=== PATIENT | male | born 1940 | race African-American/Black ===

== ENCOUNTER 2022-01-23 08:09 | Day surgery (SDC) | payer OTHER ==
[~2022-01-23] VITALS: Ht 182.9 cm; Wt 84.4 kg
[2022-01-23] MEDS ORDERED: fentaNYL citrate 0.05 MG/ML VIAL ONE (09:39)
[2022-01-23] MEDS ORDERED: MIDAZOLAM 2 MG/2 ML VIAL ONE ×3 (09:39→10:42)
[2022-01-23] MEDS ORDERED: LIDOCAINE 2% 100 MG/5 ML UJET TP ONE (09:40)
[2022-01-23] MEDS ORDERED: MIDAZOLAM 2 MG/2 ML VIAL IVP ONE (12:10)
[2022-01-23] MEDS ORDERED: fentaNYL citrate 0.05 MG/ML VIAL IVP ONE (12:10)
== END 2022-01-23 12:20 | disposition home or self-care (01) ==
LOC: MOR 08:09 → MMU 08:10 → MOR 12:20
PROVIDERS: ATTEND Internal Medicine Gastroenterology
DX: K62.5 Hemorrhage of anus and rectum (principal); D12.2 Benign neoplasm of ascending colon; D12.3 Benign neoplasm of transverse colon; D12.8 Benign neoplasm of rectum; D13.1 Benign neoplasm of stomach; D13.2 Benign neoplasm of duodenum; K57.30 Diverticulosis of large intestine without perforation or abscess without bleeding; K64.9 Unspecified hemorrhoids; K21.00 Gastro-esophageal reflux disease with esophagitis, without bleeding; K63.4 Enteroptosis; Z80.0 Family history of malignant neoplasm of digestive organs; I10 Essential (primary) hypertension; K44.9 Diaphragmatic hernia without obstruction or gangrene; Z79.899 Other long term (current) drug therapy; Z98.890 Other specified postprocedural states; Z20.822 Contact with and (suspected) exposure to COVID-19
CPT/HCPCS: 43251; 45385; 87426; 88305; J2250; J3010

== ENCOUNTER 2022-05-15 14:08 | Emergency (ER) | payer OTHER ==
[~2022-05-15] VITALS: Ht 188 cm; Wt 91.2 kg
[2022-05-15 14:28] VITALS: BP 129/81
--- NOTE | 2022-05-15 15:00 | NUR ---
81 Y/O MALE BIB SELF C/O RECTAL BLEEDINGX1 DAY, STATES THAT CLOTS ARE COMING OUT. PER PT HE WAS SEEN IN THE HOSPITAL FOR COLONOSCOPY, HEMORRHOIDS, UPPER ENDOSCOPY WITH DR SMITH. PER PT HE CALLED DR SMITH AND A PROCEDURE IS SCHEDULED FOR 05/17/22 PMH: HTN, GERD NKA
[2022-05-15 15:34] LABS: BASOPHILS % (AUTO) 0.7 % (0.0-2.0); EOSINOPHILS # (AUTO) 0.2 K/uL (0-0.4); EOSINOPHILS % (AUTO) 2.1 % (0.0-4.0); HEMATOCRIT 37.1 % (36-52); HEMOGLOBIN 12.2 g/dL (12.0-18.0); LYMPHOCYTES # (AUTO) 1.4 K/uL (2.0-11.5); LYMPHOCYTES % (AUTO) 19.9 % (20.5-51.1); MEAN CORPUSCULAR HEMOGLOBIN 30 pg (27-31); MEAN CORPUSCULAR HGB CONC 33 g/dL (33-37); MEAN CORPUSCULAR VOLUME 91.7 fL (80-94); MONOCYTES # (AUTO) 0.7 K/uL (0.8-1.0); NEUTROPHILS # (AUTO) 4.9 K/uL (1.8-7.7); NEUTROPHILS % (AUTO) 67.3 % (42.2-75.2); PLATELET COUNT (AUTO) 296 K/uL (140-450); RED BLOOD CELL COUNT(AUTO) 4.04 MIL/uL (4.20-6.10); RED CELL DISTRIBUTION WIDTH 14.1 % (11.6-13.7); WHITE BLOOD COUNT (AUTO) 7.2 K/uL (4.8-10.8)
[2022-05-15 17:56] LABS: ALBUMIN 4.2 g/dL (3.4-5.0); ANION GAP 9.6 (8-16); ASPARTATE AMINOTRANSFERASE 16 U/L (15-37); CARBON DIOXIDE 31.1 mmol/L (21-32); CHLORIDE 101 mmol/L (98-107); CREATININE 1.4 mg/dL (0.6-1.3); GLUCOSE 80 mg/dL (74-106); POTASSIUM 3.7 mmol/L (3.5-5.1); SODIUM SERUM 138 mmol/L (136-145); TOTAL BILIRUBIN 0.6 mg/dL (0.0-1.0); UREA NITROGEN, BLOOD 13 mg/dL (7-18)
[2022-05-15 18:13] LABS: PROTHROMBIN TIME 10.8 secs (10.8-13.4)
[2022-05-15] MEDS ORDERED: PHEN1SUP5 RC (18:31)
[2022-05-15 18:39] VITALS: BP 136/80
--- NOTE | 2022-05-15 18:39 | NUR ---
Patient discharged with v/s stable. Written and verbal after care instructions FOR GASTROINTESTINAL BLEEDING given and explained. Patient alert, oriented and verbalized understanding of instructions. Ambulatory with steady gait. All questions addressed prior to discharge. ID band removed. Patient advised to follow up with PMD. Rx of PHENLYEPRINE HCL given. Opportunity to ask questions provided and answered.
== END 2022-05-15 18:39 | disposition home or self-care (01) ==
LOC: MED 14:08
DX: K62.5 Hemorrhage of anus and rectum (principal); R94.31 Abnormal electrocardiogram [ECG] [EKG]
CPT/HCPCS: 36415; 80053; 85025; 85610; 85730; 86886; 86900; 86901; 93005; 99284

== ENCOUNTER 2023-05-14 16:40 | Emergency (ER) | payer OTHER ==
[~2023-05-14] VITALS: Ht 185.4 cm; Wt 90.7 kg
[~2023-05-14 16:40] MED LIST: PHEN1SUP5 RC
[2023-05-14 16:52] VITALS: BP 128/68; PULSE 77; RESP 16; TEMP 97.8; O2SAT 97
== END 2023-05-14 17:56 | disposition home or self-care (01) ==
LOC: MED 16:40
DX: D17.22 Benign lipomatous neoplasm of skin and subcutaneous tissue of left arm (principal); Z79.899 Other long term (current) drug therapy
CPT/HCPCS: 99281